=== PATIENT | male | born 1995 | race Caucasian/White ===

== ENCOUNTER 2025-08-05 11:44 | Emergency (ER) | payer OTHER ==
[2025-08-05] MEDS: Tetracaine HCl/PF 0.5% 4 ML Bottle EYELF ONE (12:08)
== END 2025-08-05 12:26 | disposition home or self-care (01) ==
LOC: KA.ED 11:44
DX: S05.02XA Injury of conjunctiva and corneal abrasion without foreign body, left eye, initial encounter (principal); W22.8XXA Striking against or struck by other objects, initial encounter
CPT/HCPCS: 99284; A9270; J3490